=== PATIENT | female | born 1970 | race Caucasian/White ===

== ENCOUNTER 2018-12-24 11:09 | Emergency (ER) | payer BC ==
--- NOTE | 2018-12-24 12:11 | ED Physician Documentation ---
PD HPI SKIN - Stated complaint Stated Complaint: FEMALE - Chief complaint Chief Complaint: Wound - History obtained from History obtained from: Patient - History of Present Illness Timing - onset: How many days ago (3) Timing - duration: Days (3) Timing - details: Gradual onset, Still present Location: Genitals Quality / character: Painful, Raised, Swelling. No: Draining Associated symptoms: Myalgias. No: Fever Contributing factors: Other (Bikini wax) Similar symptoms before: Has not had sx before Recently seen: Not recently seen - Additional information Additional information: 48-year-old female is had a recent recent to [facility] and she had something that looked like an ingrown hair which she thought she got out and she has some swelling underneath that area now that is become more painful and reddened. Review of Systems Constitutional: reports: Myalgias, Fatigue. denies: Fever Eyes: denies: Decreased vision Ears: denies: Ear pain Nose: denies: Congestion Throat: denies: Sore throat Respiratory: denies: Cough GI: denies: Nausea, Vomiting : denies: Dysuria, Frequency Skin: reports: Other (swollen tender area) Musculoskeletal: reports: Back pain. denies: Neck pain, Extremity pain Neurologic: denies: Generalized weakness, Focal weakness, Numbness PD PAST MEDICAL HISTORY - Past Medical History Past Medical History: No Cardiovascular: None Respiratory: None Neuro: None Endocrine/Autoimmune: None GI: None SUPERINTENDENT STATIONS: None : None HEENT: None Psych: None Musculoskeletal: None Derm: None - Past Surgical History Past Surgical History: Yes /SUPERINTENDENT STATIONS: Breast implants - Present Medications Home Medications: Ambulatory Orders Medication Instructions Recorded Confirmed Clindamycin HCl [Clindamycin 300MG 300 mg PO TID #21 capsule 12/24/18 CAP] Hydrocodone/Acetaminophen 1 - 2 each PO Q6H PRN #14 tablet 12/24/18 [Hydrocodon-Acetaminophen 5-325] - Allergies Allergies/Adverse Reactions: Allergies Allergy/AdvReac Type Severity Reaction Status Date / Time iodine Allergy Unknown Verified 12/24/18 11:16 sulfamethoxazole Allergy Rash Verified 12/24/18 11:16 [From Bactrim] trimethoprim [From Bactrim] Allergy Rash Verified 12/24/18 11:16 - Social History Does the pt smoke?: No Smoking Status: Never smoker Does the pt drink ETOH?: Yes ETOH Use: Wine Does the pt have substance abuse?: No - Immunizations Immunizations are current?: Yes - POLST Patient has POLST: No PD ED PE NORMAL - Vitals Vital signs reviewed: Yes (hypertensive ) - General General: Alert and oriented X 3, No acute distress, Well developed/nourished - HEENT HEENT: Atraumatic, PERRL, EOMI - Respiratory Respiratory: No respiratory distress - Female Female : Line Locator present (Nicole), Other (There is a 4cm round swelling over the left mons that is firm to palpation. Exam with the bedside ultrasound shows swelling cellulitic septations and no fluid collection. ) - Derm Derm: Normal color, Warm and dry - Extremities Extremities: No deformity, No edema - Neuro Neuro: Alert and oriented X 3, medical logistics specialist 2-12 intact, No motor deficit, No sensory deficit, Normal speech Eye Opening: Spontaneous Motor: Obeys Commands Verbal: Oriented GCS Score: 15 - Psych Psych: Normal mood, Normal affect Results - Vitals Vitals: Vital Signs - 24 hr 12/24/18 11:16 Temperature 37.1 C Heart Rate 92 Respiratory 17 Rate Blood Pressure 133/117 H O2 Saturation 100 Oxygen O2 Source Room air PD MEDICAL DECISION MAKING - ED course Complexity details: reviewed results, re-evaluated patient, considered differential, d/w patient ED course: 48-year-old female with a developing abscess in the mons pubis on the left side is allergic to Bactrim and we will place her on some clindamycin. I discussed with the patient ripening of abscess and reasons for returning to the emergency department. She is encouraged to use a warm compress 2-3 times per day. Departure - Departure Disposition: 01 Home, Self Care Clinical Impression: Abscess Condition: Stable Instructions: ED Staph Infec Abx Tx Only Follow-Up: Your, doctor [Other] Prescriptions: Clindamycin HCl [Clindamycin 300MG CAP] 300 mg PO TID #21 capsule Hydrocodone/Acetaminophen [Hydrocodon-Acetaminophen 5-325] 1 - 2 each PO Q6H PRN #14 tablet PRN Reason: pain
[2018-12-24 12:23] VITALS: BP 113/70
== END 2018-12-24 12:25 | disposition home or self-care (01) ==
LOC: ED 11:09
DX: L02.215 Cutaneous abscess of perineum (principal); Z88.2 Allergy status to sulfonamides
CPT/HCPCS: 99282; 99284